=== PATIENT | male | born 1995 | race Caucasian/White ===

== ENCOUNTER 2020-07-24 18:52 | Emergency (ER) | payer SELFPAY ==
[2020-07-24] MEDS ORDERED: Boostrix 0.5 ML (Tdap) VIAL ONE (19:29)
[2020-07-24] MEDS ORDERED: Ciprofloxacin 500 MG TAB ONE (19:29)
== END 2020-07-24 19:45 | disposition home or self-care (01) ==
LOC: MADERS 18:52
DX: S91.331A Puncture wound without foreign body, right foot, initial encounter (principal); Z87.891 Personal history of nicotine dependence; W45.0XXA Nail entering through skin, initial encounter
CPT/HCPCS: 90471; 90715

== ENCOUNTER 2023-08-14 09:52 | Emergency (ER) | payer SELFPAY ==
[2023-08-14] MEDS ORDERED: Lactated Ringer's 1,000 ML ONE (10:15)
[2023-08-14] MEDS ORDERED: fentaNYL 50 mcg/mL 1 mL Vial ONE (10:15)
[2023-08-14 10:18] LABS: #Basophils 0.2 thou/uL (0.0-0.2); #Eosinphils 0.1 thou/uL (0.0-0.7); #Lymphocytes 1.4 thou/uL (1.20-3.40); #Monocytes 0.7 thou/uL (0.11-0.59); #Neutrophils 5.5 thou/uL (1.40-6.50); %Basophils 2.1 % (0.0-1.0); %Eosinophils 1.3 % (0.0-10.0); %Lymphocytes 17.9 % (21.0-51.0); %Monocytes 9.3 % (0.0-10.0); %Neutrophils 69.4 % (42.0-75.0); Hematocrit 50.8 % (42.0-52.0); Hemoglobin 15.4 g/dL (14.0-18.0); Mean Corpuscular HGB CONC 30.4 g/dL (32.0-36.0); Mean Corpuscular Hemoglobin 28.9 pg (27.0-31.0); Mean Platelet Volume 8.2 fL (7.4-10.4); Platelet Count 201 10x3/uL (130-400); RBC Distribution Width 12.5 % (11.5-14.5); Red Blood Cell (RBC) Count 5.35 mill/uL (4.70-6.10); White Blood Cell (WBC) Count 7.9 10x3/uL (4.8-10.8)
[2023-08-14 10:32] LABS: ALT (SGPT) 33 U/L (8-55); AST (SGOT) 50 U/L (5-34); Albumin 4.4 g/dL (3.5-5.0); Alkaline Phosphatase 79 U/L (40-110); Anion Gap 13 mmol/L (10-20); BUN (Urea Nitrogen) 18 mg/dL (8.9-20.6); Bilirubin, Total 0.6 mg/dL (0.2-1.2); Calc. Creatinine Clearance 0 mL/min (70-130); Calcium 9.3 mg/dL (7.8-10.44); Carbon Dioxide 25 mmol/L (22-29); Chloride 106 mmol/L (98-107); Estimated GFR 121; Glucose 97 mg/dL (70-105); Lipase 27 U/L (8-78); Potassium 4.2 mmol/L (3.5-5.1); Protein, Total 7.4 g/dL (6.0-8.3); Sodium 140 mmol/L (136-145)
[2023-08-14] MEDS ORDERED: Bacitracin 1 PK ONE (11:14)
[2023-08-14] MEDS ORDERED: Acetaminophen 500 MG TAB ONE (11:15)
[2023-08-14] MEDS ORDERED: Lidocaine 4% Patch ONE (11:15)
== END 2023-08-14 12:14 | disposition home or self-care (01) ==
LOC: MADERS 09:52
DX: S06.0X0A Concussion without loss of consciousness, initial encounter (principal); S01.511A Laceration without foreign body of lip, initial encounter; S50.11XA Contusion of right forearm, initial encounter; F17.210 Nicotine dependence, cigarettes, uncomplicated; W20.8XXA Other cause of strike by thrown, projected or falling object, initial encounter
CPT/HCPCS: 70450; 70486; 71260; 72125; 80053; 83690; 84484; 85025; 93005; 94760; 96361; 96374; J3010; J7120

== ENCOUNTER 2024-01-27 20:29 | Emergency (ER) | payer SELFPAY ==
[2024-01-27] MEDS ORDERED: Sulfameth/Trimethoprim DS 800-160mg TAB ONE (21:20)
[2024-01-27] MEDS ORDERED: Cephalexin 250 MG CAP ONE (21:20)
== END 2024-01-27 21:31 | disposition home or self-care (01) ==
LOC: MADERS 20:29
DX: L03.116 Cellulitis of left lower limb (principal); F17.220 Nicotine dependence, chewing tobacco, uncomplicated
CPT/HCPCS: 87070; 87077; 87186; 87205; 99283

== ENCOUNTER 2024-05-10 18:09 | Emergency (ER) | payer SELFPAY | END 2024-05-10 18:40 | disposition home or self-care (01) | LOC: MADERS 18:09 | DX: L03.011 Cellulitis of right finger (principal); F17.220 Nicotine dependence, chewing tobacco, uncomplicated; F17.210 Nicotine dependence, cigarettes, uncomplicated; Z55.6 Problems related to health literacy | CPT/HCPCS: 99282 ==